=== PATIENT | male | born 1990 | race Asian ===

== ENCOUNTER 2024-11-19 13:10 | Outpatient (REF) | payer MEDICAID, SELFPAY ==
--- OUTSIDE RECORDS SUMMARY | 2024-11-19 14:29 | XMS_ITS | Clinical Summary ---
Author Organization [facility] Address [facility] [place] [address] Care Team Providers Care Manager Community Development Name Role Phone Medardo Flores MD Primary Care Provider Allergies No known active allergies Medications multivitamin Capsule Take 1 capsule by mouth daily. Active pantoprazole EC (Protonix) [address] tabletIndications :Gastroesophageal reflux disease, unspecified whether esophagitis present Take 1 tablet by mouth daily. 30 tablet 3 4 Active lisinopriL (Zestril) 40 mg tabletIndications :Essential hypertension Take 1 tablet by mouth daily. 90 tablet 4 Active bictegrav-emtrici t-tenofov ala (Biktarvy) 50-200-25 mg tabletIndications :HIV disease Take 1 tablet by mouth daily. 30 tablet 5 Active Active Problems Problem Noted Date Diagnosed Date Tobacco use 05/03/2020 Dry eye syndrome of both eyes 05/01/2019 Myopia of both eyes 04/11/2018 HIV (human immunodeficiency virus infection) Essential hypertension 11/07/2017 Genital warts 11/07/2017 Resolved Problems Problem Noted Date Diagnosed Date Resolved Date Cigarette smoker 11/07/2017 10/27/2018 Encounters Date Type Department Care Team Description 10/22/2024 Orders Only Infectious Disease at [place] [address] [facility] [address] Phyllis Garrett MD HIV disease 10/15/2024 Refill Infectious Disease at [facility] [place] [address] Phyllis Garrett MD HIV disease 10/15/2024 Refill Infectious Disease at [place] [phone] Phyllis Garrett MD HIV disease 09/21/2024 Specialty Pharmacy Pharmacy at [place] [phone] Nadine Pina, [facility] Medication Discontinuation or Transfer - bictegrav/emtricit/ten ofov ala (Biktarvy) for HIV 09/16/2024 Refill Infectious Disease at [place] [phone] Phyllis Garrett MD HIV disease 08/21/2024 Refill Infectious Disease at [place] [phone] Phyllis Garrett MD HIV disease 08/19/2024 Telephone [place] [address] None from Last 3 Months Immunizations Immunization Administration Dates Next Due HPV 9-Valent (Gardasil 9) 06/05/2018,01/14/2018, 10/03/2017 Influenza Quadrivalent, Pres ervative Free 01/15/2022,03/06/2021,04/04/2020,12/13 Meningococcal ACWY Polysacch aride Conjugate (Menactra) 11/14/2020,04/04/2020 Pneumococcal 13-Valent Conju gate (Prevnar 13) 10/27/2018 Pneumococcal 23-Valent Polys accharide (Pneumovax 23) 04/04/2020 Tdap (Adacel, Boostrix) 10/02/2016 Family History Medical History Relation Comments Hypertension Father Cataracts Neg Hx Diabetes Neg Hx Glaucoma Neg Hx Macular Degeneration Neg Hx Retinal Detachment Neg Hx Relation Status Comments Father Social History Tobacco Use Types Packs/Day Years Used Date Smoking Tobacco: Every Day Cigarettes 0.5 4 Smokeless Tobacco: Never Tobacco Cessation:Ready to Q uit: Not Asked; Counseling Given: Not Answered Alcohol Use Standard Drinks/Week Comments Yes 0 (1 standard drink = 0.6 oz pur e alcohol) socially Overall Financial Resource Strain (CARDIA) Answe r Date Recorded How hard is it for you to pa y for the very basics like food, housing, medical care, and heating? Patient declined 01/16/2022 Exercise Vital Sign Answer Date Recorde d On average, how many days pe r week do you engage in moderate to strenuous exercise (like a brisk walk)? 3 days 01/16/2022 On average, how many minutes do you engage in exercise at this level? 40 min 01/16/2022 Hunger Vital Sign Answer Date Recorded Within the past 12 months, y ou worried that your food would run out before you got the money to buy more. Patient declined Within the past 12 months, t he food you bought just didn't last and you didn't have money to get more. Patient declined 03/2021 PRAPARE - Transportation Answer Date Re corded In the past 12 months, has l ack of transportation kept you from medical appointments or from getting medications? No 03/2021 In the past 12 months, has l ack of transportation kept you from meetings, work, or from getting things needed for daily living? No 01/16/2022 Housing Stability Vital Sign Answer Krunal e Recorded In the last 12 months, was t here a time when you were not able to pay the mortgage or rent on time? Patient refused 01/17/20 22 In the last 12 months, how many places have you lived? 2 01/16/2022 In the last 12 months, was t here a time when you did not have a steady place to sleep or slept in a mcc (including now)? No 01/16/2022 Sex and Gender Information Value Date Recorded Sex Assigned at Male 11/13/2023 8:20 PM EDT Legal Sex Male 10:14 AM EDT Gender Identity Male 11/13/2023 8:20 PM EDT Sexual Orientation Lesbian or Castro 11/13/2023 8: 20 PM EDT Last Filed Vital Signs Vital Sign Reading Time Taken Comments Blood Pressure 139/94 11/19/2023 9:26 AM EDT Pulse 76 11/19/2023 9:26 AM EDT Temperature 36.3 C (97.3 F) 11/19/2023 9:26 AM EDT Respiratory Rate 16 01/07/2023 12:45 PM EDT Oxygen Saturation 100% 11/19/2023 9:26 AM EDT Inhaled Oxygen Concentration - - Weight 57.2 kg (126 lb 3.2 oz) 11/19/2023 9:26 A M EDT Height 164.4 cm (5' 4.72 ) 11/19/2023 9:26 AM ED T Body Mass Index 21.18 11/19/2023 9:26 AM EDT Plan of Treatment Health Maintenance Due Date Last Done Comments Hepatitis C Screening 07/16/2024 07/17/2023 , 04/23/2022, 11/12/2017 Syphilis Screening 07/16/2024 07/17/2023, 0 04/23/2022, 03/06/2021, Additional history exists Covid-19 Vaccine ( - 2023-2 5 season) 2024 Influenza (Flu) vaccine (1 o f 1 - Influenza standard series) 11/16/2024 01/15/2022, 03/06/2021, 04/04/2020, Additional history exists Chlamydia Screening 11/18/2024 11/19/2023, 07/17/2023, 01/07/2023, Additional history exists Gonorrhea Screening 11/18/2024 11/19/2023, 07/17/2023, 01/07/2023, Additional history exists Pneumococcal Vaccine: At-Ris k 5-49yrs (3 of 3 - PCV20 or PCV21) 04/04/2025 04/04/2020, 10/27/2018 Meningococcal ACWY Vaccine ( 3 - Risk 2-dose series) 11/14/2025 11/14/2020, 04/04/2020 Tetanus/Diphtheria/Pertussis Vaccines (2 - Td or Tdap) 10/02/2026 10/02/2016 Lipid Screening 07/16/2028 07/17/2023, 1203/2021, 11/12/2017 Hepatitis B Screening Completed 11/20/2017 , 11/12/2017, 11/12/2017 HPV vaccine Completed 06/05/2018, 12/18, 10/03/2017 Goals Goal Patient Goal Type Associated Problems Recent Progress Patient-Stated? Author Patient's specific desired goal: Patient Facing Action Plan On track(2023 10:07 AM EDT) Nadine Bone, [facility] Note: Goal(s): Undetectable HIV viral load Measured by: HIV-1 RNA lab Time-frame: 4-6 weeks after initiation/change in ART and then every 3-6 months thereafter Procedures Procedure Name Priority Date/Time Associated Diagnosis Comments GC/CHLAMYDIA Routine 11/19/2023 10:18 AM EDT Dysuria LIPID PANEL (REFLEX DIRECT LDL) Routine 07/17/2023 5:08 PM EDT HIV disease SYPHILIS ANTIBODY SCREEN WITH REFLEX Routine 07/17/2023 5:08 PM EDT HIV disease HEPATITIS C ANTIBODY Routine 07/17/2023 5:08 PM EDT HIV disease HEPATITIS B SURFACE ANTIGEN Routine 11/20/2017 4:46 PM EDT from Last 3 Months or Most Recently Relevant to Health Maintenance Results * GC/Chlamydia (11/19/2023 10:18 AM EDT) Gonorrhoeae Gene Amp Negative 11/20/2023 1:29 AM EDT [facility] Chlamydia Gene Amp Negative 11/20/2023 1:29 AM EDT [facility] Urine URINE SPECIMEN / Unknown Non Blood Collection / Unknown 11/19/2023 10:18 AM EDT 11/19/2023 10:30 AM EDT us Eva Kwok MD MICROBIOLOGY - GENERAL ORDER GRZEGORZ Final Result [facility] [place] [address] * Hepatitis C Antibody (07/17/2023 5:08 PM EDT) Hepatitis C Antibody Negative Negative [facility] Blood 07/17/2023 5:08 PM EDT 07/17/2023 5:20 PM EDT Narrative Resulting Agency Comment Spec In Lab Phyllis Garrett MD CHEMISTRY ORDERABLES Final Result [facility] [place] [address] * Syphilis Screening Antibody with reflex RPR (07/17/2023 5:08 PM EDT) Syphilis IgG/IgM Negative Negative [facility] Blood 07/17/2023 5:08 PM EDT 07/17/2023 5:20 PM EDT Narrative Resulting Agency Comment Spec In Lab Phyllis Garrett MD CHEMISTRY ORDERABLES Final Result Performing Organization Address [facility] Co de Phone Number [facility] [place] [address] * Lipid Panel (Reflex Direct LDL) (07/17/2023 5:08 PM EDT) Pathologist [facility] Cholesterol, Total 157 mg/dL [facility] Comment: Desirable: <200 mg/dL Borderline High: 200-239 mg/dL Higher: >ip=335 mg/dL Triglyceride 159 mg/dL [facility] Comment: Normal: <150 mg/dL Borderline High: 150-199 mg/dL High: 200-499 mg/dL Very High: >rl=093 mg/dL HDL Cholesterol 41 mg/dL [facility] Comment: Females: High Risk: <50 mg/dL Males: High Risk: <40 mg/dL LDL Cholesterol 84 mg/dL [facility] Comment: Desirable: <100 mg/dL Above Desirable: 100-129 mg/dL Borderline High: 130-159 mg/dL High: 160-189 mg/dL Very High: >xd=329 mg/dL Lipid Interpretation See Note [facility] Comment: It is important to review the results of your lipid panel with your health care provider. You can compare your lipid results to the ranges below and whether they are in the desirable range. These ranges are only meant to be used for people without known cardiac disease, history of stroke, or peripheral vascular disease (blockages in the leg arteries or diabetes). If you have one of these conditions, your desirable LDL-C (bad cholesterol) will likely be even lower. ACC/AHA Guidelines (most recently Andrea et al. [facility] 12/19/21): For individuals with atherosclerotic cardiovascular disease (ASCVD)or LDL >wm=939 mg/dL, use a high-intensity statin (40-80 mg atorvastatin or 20-40 mg rosuvastatin with goal >or=50% LDL reduction) For individuals with diabetes, age 40-75 without ASCVD, moderate-intensity statin (goal 30-49% LDL reduction); consider high intensity statin for those with increased risk. For adults without diabetes or ASCVD, aged 40-75 with LDL 70-189 mg/dL, estimate 10 year ASCVD risk with smartphrase .ASCVDRISK or Dynamed Decisions. If 10 year risk is 7.5%-19.9% (intermediate risk), consider moderate intensity statin based on risk enhancers and patient preference. Consider coronary artery calcium test (CT) if there is concern regarding the benefit of a statin. If ten year risk is >or=20%, initiate high-intensity statin. Evaluate for secondary causes of triglycerides >500 mg/dL or LDL >190 mg/dL. Lifestyle modification is a critical component of ASCVD risk reduction. If not reaching LDL goals on maximally tolerated statin, consider ezetimibe and/or a PCSK9 inhibitor: Target for primary prevention: LDL<100 Target for those with ASCVD or diabetes and 10-year risk >or=20%: LDL<70 Target for those with very high risk ASCVD: LDL<55 (Very high risk being the presence of 2 or more of: recent acute coronary syndrome, past myocardial infarction, ischemic stroke, symptomatic peripheral artery disease) Blood 07/17/2023 5:08 PM EDT 07/17/2023 5:20 PM EDT Narrative Resulting Agency Comment Spec In Lab us Phyllis Garrett MD CHEMISTRY [place] [address] * Hepatitis B Surface Antigen (11/20/2017 4:46 PM EDT) Hepatitis B Surface Antigen Negative Negative [facility] Blood specimen (specimen) Venous Draw / Unknown 11/20/2017 4:46 PM EDT 11/20/2017 5:49 PM EDT Narrative Resulting Agency Comment Spec In Lab Phyllis Garrett MD CHEMISTRY ORDERABLES Final Result [facility] [place] [address] from Last 3 Months or Most Recently Relevant to Health Maintenance Insurance * Guarantor: Flakito Guidry Account Type Relation to Patient Date of Phone Billing Address Personal/Family Self 1990 [id number] (Home) [address] [place] [id number] [employer] [facility] HMO POS Care Teams Manager Community Development Relationship Specialty Start Date End Date Medardo Flores MD [facility] [place] [address] PCP - General General Internal Medicine 09/16/23
--- OUTSIDE RECORDS SUMMARY | 2024-11-19 14:29 | XMS_ITS | Encounter Summary ---
Author Organization [facility] Address [facility] [place] [address] Care Team Providers Care Tractor Drill Operator Name Role Phone Medardo Flores MD Primary Care Provider Encounter Details Date Type Department Care Team (Late st Contact Info) Description 09/25/2017 Community Orders External [phone] Arnoldo Lara MD [address] [place] [address] Hypertension, unspecified type Social History Tobacco Use Types Packs/Day Years Used Date Smoking Tobacco: Former Cigarettes 0.3 1 1 - 12/31/2016 Smokeless Tobacco: Never Sex and Gender Information Value Date Recorded Sex Assigned at Male 11/13/2023 8:20 PM EDT Legal Sex Male 10:14 AM EDT Gender Identity Male 11/13/2023 8:20 PM EDT Sexual Orientation Lesbian or Castro 11/13/2023 8: 20 PM EDT documented as of this encounter Plan of Treatment Not on file documented as of this encounter Results * Basic Metabolic Panel (non-fasting) (10/22/2017 11:18 AM EDT) Glucose 86 65 - 199 mg/dL [facility] Comment:Diabetes: >=200 mg/d L plus symptoms Blood Urea Nitrogen 14 10 - 20 mg/dL [facility] Creatinine 0.91 0.80 - 1.50 mg/dL [facility] Sodium 139 135 - 145 mmol/L [facility] Potassium 4.3 3.5 - 5.0 mmol/L [facility] Comment: Please note: Patients with WBC >100,000 may have falsely elevated Potassium levels. For accurate Potassium quantification in these patients send serum separator tube (gold top) for subsequent determinations. Contact the Clinical Chemistry Laboratory if there are any questions. Chloride 98 98 - 107 mmol/L [facility] Carbon Dioxide 26 22 - 31 mmol/L [facility] Anion Gap 15 5 - 15 mmol/L [facility] Calcium 9.8 8.5 - 10.5 mg/dL [facility] Est Glomerular Filtration Rate 117 >=60 mL/min/1. 73 m [facility] Comment: The eGFR was calculated using the CKD-EPI equation. As with all creatinine based estimates of kidney function, eGFR values calculated with the CKD-EPI equation are not accurate in patients with acute kidney failure, extremes of body mass or the acutely ill. http://[employer]/DHnkf eGFR 135 >=60 mL/min/1. 73 m [facility] Comment: The eGFR was calculated using the CKD-EPI equation. As with all creatinine based estimates of kidney function, eGFR values calculated with the CKD-EPI equation are not accurate in patients with acute kidney failure, extremes of body mass or the acutely ill. [email or web address]/DHnkf Blood specimen (specimen) 10/22/2017 11:18 AM EDT 10/22/2017 11:30 AM EDT Narrative Resulting Agency Comment Spec In Lab us Arnoldo Lara MD CHEMISTRY ORDERABLES Final Resul t [facility] [place] [address] documented in this encounter Visit Diagnoses Diagnosis Hypertension, unspecified type documented in this encounter Additional Health Concerns Infection Onset Date Last Indicated Resolved Time COVID-19 03/10/2020 03/10/2020 03/31/2020 8:09 PM EST documented as of this encounter Care Teams Tractor Drill Operator Relationship Specialty Start Date End Date Medardo Flores MD [facility] [place] [phone] PCP - General General Internal Medicine 09/16/23 documented as of this encounter
--- OUTSIDE RECORDS SUMMARY | 2024-11-19 14:29 | XMS_ITS | Encounter Summary ---
Author Organization [facility] [place] [address] Care Team Providers Care Certified Cytotechnologist Name Role Phone Medardo Flores MD Primary Care Provider [phone] Reason for Visit * Reason Onset Date Comments Medication Refill 04/17/2018 Encounter Details Date Type Department Care Team (Late st Contact Info) Description 04/17/2018 Ref[place] [address] Phyllis Garrett MD [facility] [place] [address] HIV (human immunodeficiency virus infection) Social History Tobacco Use Types Packs/Day Years Used Date Smoking Tobacco: Every Day Cigarettes 0.3 1 Started: 01/01/2016; Last attempted to quit: 12/31/2016 Smokeless Tobacco: Never Alcohol Use Standard Drinks/Week Comments Yes 0 (1 standard drink = 0.6 oz pur e alcohol) socially Sex and Gender Information Value Date Recorded Sex Assigned at Male 11/13/2023 8:20 PM EDT Legal Sex Male 10:14 AM EDT Gender Identity Male 11/13/2023 8:20 PM EDT Sexual Orientation Lesbian or Castro 11/13/2023 8: 20 PM EDT documented as of this encounter Plan of Treatment Not on file documented as of this encounter Visit Diagnoses Diagnosis HIV (human immunodeficiency virus infection) Asymptomatic human immunodeficiency virus (HIV) infection status documented in this encounter Additional Health Concerns Infection Onset Date Last Indicated Resolved Time COVID-19 03/10/2020 03/10/2020 03/31/2020 8:09 PM EST documented as of this encounter Care Teams Certified Cytotechnologist Relationship Specialty Start Date End Date Medardo Flores MD [facility] [place] [address] PCP - General General Internal Medicine 09/16/23 documented as of this encounter
--- OUTSIDE RECORDS SUMMARY | 2024-11-19 14:29 | XMS_ITS | Encounter Summary ---
Author Organization [facility] [place] [address] Care Team Providers Care Lacing String Cutter Name Role Phone Medardo Flores MD Primary Care Provider [phone] Reason for Visit * Reason Comments Medication Refill Encounter Details Date Type Department Care Team ([facility] st Contact Info) Description 07/22/2022 Refill Internal Medicine at [facility] [place] [address] Eva Sandhu PA Exposure to chlamydia Social History Tobacco Use Types Packs/Day Years Used Date Smoking Tobacco: Former Cigarettes 0.5 4 0 04/09/2018 - 04/09/2022 Smokeless Tobacco: Never Alcohol Use Standard Drinks/Week [...] as of this encounter Visit Diagnoses Diagnosis Exposure to chlamydia Contact with or exposure to venereal diseases documented in this encounter Care Teams Lacing String Cutter Relationship Specialty Start Date End Date Medardo Flores MD [facility] [place] [address] PCP - General General Internal Medicine 09/16/23 documented as of this encounter
--- OUTSIDE RECORDS SUMMARY | 2024-11-19 14:29 | XMS_ITS ---
[place] [address] Care Team Providers Care Content Director Name Role Phone Medardo Flores MD Primary Care Provider [phone] HIV Status:Un-enrolled (Enrolling) Start date:05/16/2023 Enrollment reason:Un-enrolled - Patient Convenience or Preference Linked medications:bictegrav/emtricit/tenofov ala (Active) Linked problems:HIV (human immunodeficiency virus infection) (Active) Continued Care and Services Coordination
[2024-11-19 16:10] LABS: MANUAL DIFF FLAG NO
[2024-11-19 16:18] LABS: Hematocrit 45.9 % (42.0-52.0); Hemoglobin 16.0 g/dl (14.0-18.0); Imm Gran Abs Auto 0.01 X10*3/uL (0.00-0.03); Imm Gran Pct Auto 0.2 % (0.0-0.4); Lymphocytes Absolute Auto 1.8 X10*3/uL (1.2-4.9); Mean Corpuscular HGB Conc 34.9 g/dl (31.0-36.0); Mean Corpuscular Hemoglobin 30.9 pg (27.0-33.0); Mean Corpuscular Volume 88.6 fL (80.0-98.0); NRBC Abs Auto 0.000 X10*3/uL (0.0-0.012); NRBC Pct Auto 0.0 /100WBC (0.0-0.2); Platelet Count 189 X10*3/uL (160-400); Red Blood Count 5.18 X10*6/uL (4.60-5.80); White Blood Count 4.4 X10*3/uL (4.8-10.8)
[2024-11-19 16:23] LABS: Alanine Aminotransferase 51 U/L (0-40); Albumin Level 5.3 g/dL (3.5-5.0); Alkaline Phosphatase 57 U/L (39-117); Anion Gap 12 (12-20); Aspartate Amino Transferase 29 U/L (5-37); Blood Urea Nitrogen 16 mg/dL (9-16); Calcium 9.3 mg/dL (8.4-10.2); Carbon Dioxide 28 mmol/L (22-29); Chloride 104 mmol/L (96-108); Estimated Glomerular Filt Rate > 60; Potassium 3.8 mmol/L (3.3-5.1); Sodium 140 mmol/L (135-145); Total Protein 7.8 g/dL (6.5-8.0)
[2024-11-19 23:48] LABS: CT PCR Urine NOT DETECTED (Not Detect.); NG PCR Urine NOT DETECTED (Not Detect.)
[2024-11-20 04:20] LABS: HBS Num1 27.40 mIU/mL (0-7.99); HBc Num1 0.31 S/CO (0.00-0.79); HBsAGNum1 0.58 S/CO (0.00-0.99); Hepatitis B Surface Antigen Negative (Negative); ~HepC Num1 0.07 S/CO (0.00-0.79); ~Hepatitis B Surface Antibody REACTIVE (Nonreactive); ~Hepatitis C Antibody Nonreactive (Nonreactive)
[2024-11-20 04:43] LABS: ~Hepatitis A Antibody IgG 10.09 S/CO (0.00-0.99)
[2024-11-20 04:47] LABS: Syphilis Screen Nonreactive (Nonreactive)
[2024-11-20 09:24] LABS: Rubeola IgG (Measles) >300.00 AU/mL
[2024-11-20 14:09] LABS: C. Trachomatis RNA TMA, Throat NOT DETECTED (NOT DETECTED); N. gonorrhoeae RNA TMA, Throat NOT DETECTED (NOT DETECTED)
[2024-11-20 17:44] LABS: C.Trachomatis RNA TMA, Rectal NOT DETECTED (NOT DETECTED); N.Gonorrhoeae RNA TMA, Rectal NOT DETECTED (NOT DETECTED)
[2024-11-22 08:08] LABS: TS Negative Control Passed; TS Panel A 0; TS Panel B 0; TS Positive Control Passed; TSpotTB Negative (Negative)
[2024-11-22 18:54] LABS: Absolute CD3 Count 1203 cells/uL (840-3060); Absolute CD8 Count 873 cells/uL (180-1170); Percent CD3 Cells 68 % (57-85); Percent CD8 Cells 50 % (12-42)
[2024-11-25 20:44] LABS: HIV RNA PCR Qn Copies 273 Copies/mL; HIV RNA PCR Qn Log Copies 2.44 Log cps/mL
== END 2024-11-19 13:11 | disposition home or self-care (01) ==
LOC: HO.HHCL 13:10
PROVIDERS: Visit Provider Internal Medicine
DX: B20 Human immunodeficiency virus [HIV] disease (principal); Z01.84 Encounter for antibody response examination; Z11.3 Encounter for screening for infections with a predominantly sexual mode of transmission; Z11.8 Encounter for screening for other infectious and parasitic diseases; Z11.59 Encounter for screening for other viral diseases
CPT/HCPCS: 36415; 80053; 85025; 86359; 86360; 86481; 86704; 86706; 86708; 86735; 86762; 86765; 86777; 86778; 86780; 86787; 86803; 87340; 87491; 87536; 87591; 87900

== ENCOUNTER 2025-01-11 11:25 | Outpatient (REF) | payer MEDICAID, SELFPAY ==
[2025-01-11 13:23] LABS: MANUAL DIFF FLAG NO
[2025-01-11 13:41] LABS: Hematocrit 47.3 % (42.0-52.0); Hemoglobin 16.1 g/dl (14.0-18.0); Imm Gran Abs Auto 0.01 X10*3/uL (0.00-0.03); Imm Gran Pct Auto 0.2 % (0.0-0.4); Lymphocytes Absolute Auto 1.5 X10*3/uL (1.2-4.9); Mean Corpuscular HGB Conc 34.0 g/dl (31.0-36.0); Mean Corpuscular Hemoglobin 30.7 pg (27.0-33.0); Mean Corpuscular Volume 90.1 fL (80.0-98.0); NRBC Abs Auto 0.000 X10*3/uL (0.0-0.012); NRBC Pct Auto 0.0 /100WBC (0.0-0.2); Platelet Count 187 X10*3/uL (160-400); Red Blood Count 5.25 X10*6/uL (4.60-5.80); White Blood Count 5.8 X10*3/uL (4.8-10.8)
[2025-01-11 13:49] LABS: Alanine Aminotransferase 28 U/L (0-40); Albumin Level 4.7 g/dL (3.5-5.0); Alkaline Phosphatase 73 U/L (39-117); Anion Gap 10 (12-20); Aspartate Amino Transferase 31 U/L (5-37); Blood Urea Nitrogen 9 mg/dL (9-16); Calcium 8.8 mg/dL (8.4-10.2); Carbon Dioxide 29 mmol/L (22-29); Chloride 107 mmol/L (96-108); Cholesterol 134 mg/dL (<200); Estimated Glomerular Filt Rate > 60; HDL Cholesterol 39 mg/dL (>40); Potassium 3.6 mmol/L (3.3-5.1); Sodium 142 mmol/L (135-145); Total Protein 7.2 g/dL (6.5-8.0); Triglycerides 73 mg/dL (<150)
--- OUTSIDE RECORDS SUMMARY | 2025-01-11 14:39 | XMS_ITS | Clinical Summary ---
Author Organization [facility] Address [address] [place] [address] Care Team Providers Care Med Care Manager Name Role Phone Unavailable Primary Care Provider Unavailabl e Source Comments PLEASE NOTE, if this patient is a minor, it may be UNLAWFUL to discuss sensitive information that is contained in these records (such as FAMILY PLANNING, MENTAL HEALTH or SUBSTANCE ABUSE) with the minor patient's parent or other person without the patient's specific authorization.[facility] Social History Tobacco Use Types Packs/Day Years Used Date Smoking Tobacco: Never Assessed Sex and Gender Information Value Date Recorded Sex Assigned at Male 11/30/2024 9:34 AM PDT Legal Sex Male 9:34 AM PDT Gender Identity Male 11/30/2024 9:34 AM PDT Sexual Orientation Not on file Plan of Treatment Upcoming Encounters Date Type Department Care Team (Late st Contact Info) Description 01/19/2025 1:00 PM EST Behavioral Health Visit [facility] [address] [place] [address] Xochitl Lynn APRN [address] [place] [address] Health Maintenance Due Date Last Done Comments Anxiety Screening 1990 Tobacco Screening 1990 HIV Screening 10/10/2007 Hypertension Screening (#1) 2010 Imm-Hepatitis B (1 of 3 - 19 + 3-dose series) 10/10/2011 Alcohol and Drug Screen 03/18/2024 Depression Annual Screen 03/18/2024 [id number] ( - season) 2024 Imm-Influenza (#1) 2024 01/15/2022, 1 05/07/2020, 04/04/2020, Additional history exists Imm-DTaP/Tdap/Td (2 - Td or Tdap) 10/02/2026 017 Imm-HPV Completed 06/05/2018, 12/18, 10/03/2017 Hepatitis C Screening Completed 11/19/2024 Insurance [employer] [facility] [place] [phone]
--- OUTSIDE RECORDS SUMMARY | 2025-01-11 14:39 | XMS_ITS | Clinical Summary ---
Author Organization [facility] Address [facility] [place] [address] Care Team Providers Care Cognos Analyst Name Role Phone Medardo Flores MD Primary Care Provider [phone] Allergies No known active allergies Medications multivitamin [...] Encounters Date Type Department Care Team Description 11/19/2024 Refill Infectious Disease at [place] [address] [place] [address] [place] [address] Phyllis Garrett MD HIV disease 10/22/2024 Orders Only Infectious Disease at [place] [address] [place] [address] [place] [address] Phyllis Garrett MD HIV disease 10/15/2024 Ref[place] [address] Phyllis Garrett MD HIV disease 10/15/2024 [place] [address] Phyllis Garrett MD HIV disease from Last 3 Months Immunizations Immunization Administration [...] place to sleep or slept in a penitentiary (including now)? No 01/16/2022 Sex and Gender [...] 04/23/2022, 03/06/2021, Additional history exists Covid-19 Vaccine (1 - 2024-2 6 season) 2024 Influenza (Flu) vaccine (1 o [...] On track(2023 10:07 AM EDT) Nadine Bone, [facility] Note: Goal(s): Undetectable HIV viral load Measured [...] Gene Amp Negative 11/20/2023 1:29 AM EDT [facility] Chlamydia Gene Amp Negative 11/20/2023 1:29 AM EDT [facility] Urine URINE SPECIMEN / Unknown Non Blood Collection / Unknown 11/19/2023 10:18 AM EDT 11/19/2023 10:30 AM EDT us Eva Kwok MD MICROBIOLOGY - GENERAL ORDER GRZEGORZ Final Result [facility] [place] [address] * Hepatitis C Antibody (07/17/2023 5:08 PM EDT) Hepatitis C Antibody Negative Negative [facility] Blood 07/17/2023 5:08 PM EDT 07/17/2023 5:20 PM EDT Narrative Resulting Agency Comment Spec In Lab us Phyllis Garrett MD CHEMISTRY ORDERABLES Final Result [facility] [place] [address] * Syphilis Screening Antibody with reflex RPR (07/17/2023 5:08 PM EDT) Syphilis IgG/IgM Negative Negative [facility] Blood 07/17/2023 5:08 PM EDT 07/17/2023 5:20 PM EDT Narrative Resulting Agency Comment Spec In Lab us Phyllis Garrett MD CHEMISTRY ORDERABLES Final Result [facility] [place] [address] * Lipid Panel (Reflex Direct LDL) (07/17/2023 5:08 PM EDT) Cholesterol, Total 157 mg/dL [facility] Comment: Desirable: <200 mg/dL Borderline High: 200-239 mg/dL Higher: >uv=717 mg/dL Triglyceride 159 mg/dL [facility] Comment: Normal: <150 mg/dL Borderline High: 150-199 mg/dL High: 200-499 mg/dL Very High: >pv=882 mg/dL HDL Cholesterol 41 mg/dL [facility] Comment: Females: High Risk: <50 mg/dL Males: High Risk: <40 mg/dL LDL Cholesterol 84 mg/dL [facility] Comment: Desirable: <100 mg/dL Above Desirable: 100-129 mg/dL Borderline High: 130-159 mg/dL High: 160-189 mg/dL Very High: >km=710 mg/dL Lipid Interpretation See Note [facility] Comment: It is important to review [...] ACC/AHA Guidelines (most recently Andrea et al. JACC 12/19/21): For individuals with atherosclerotic cardiovascular disease (ASCVD)or LDL >gz=677 mg/dL, use a high-intensity statin (40-80 mg [...] CHEMISTRY ORDERABLES Final Result Performing Organization Address [facility]/ZIP Co de Phone Number [facility] [place] [address] * Hepatitis B Surface Antigen (11/20/2017 4:46 PM EDT) Hepatitis B Surface Antigen Negative Negative [facility] Blood specimen (specimen) Venous Draw / Unknown 11/20/2017 4:46 PM EDT 11/20/2017 5:49 PM EDT Narrative Resulting Agency Comment Spec In Lab us Phyllis Garrett MD CHEMISTRY ORDERABLES Final Result Performing Organization Address City/[facility]/ZIP Co de Phone Number [facility] [place] [address] from Last 3 Months or Most Recently Relevant to Health Maintenance Insurance * Guarantor: Flakito Guidry Account Type Relation to Patient Date of Phone Billing Address Personal/Family Self 1990 [id number] (Home) [address] [place] [address] [facility] Care Teams Cognos Analyst Relationship Specialty Start Date End Date Medardo Flores MD [facility] [place] [place] [address] PCP - General General Internal Medicine 09/16/23
--- OUTSIDE RECORDS SUMMARY | 2025-01-11 14:39 | XMS_ITS ---
[place] [address] Care Team Providers Care Rubber Ball Finisher Name Role Phone Medardo Flores MD Primary Care Provider [phone] HIV Status:Un-enrolled (Enrolling) Start date:05/16/2023 Enrollment reason:Un-enrolled - Patient Convenience or Preference Linked medications:bictegrav/emtricit/tenofov ala (Active) Linked problems:HIV (human immunodeficiency virus infection) (Active) Continued Care and Services Coordination
--- OUTSIDE RECORDS SUMMARY | 2025-01-11 14:39 | XMS_ITS | Encounter Summary ---
Author Organization Formerly [facility] Address [facility] [place] [address] Care Team Providers Care Boarder Machine Name Role Phone Medardo Flores MD Primary Care Provider [phone] Encounter Details Date Type Department Care Team (Late st Contact Info) Description 09/25/2017 Community Orders External [phone] Arnoldo Lara MD [address] [place] [address] Hypertension, unspecified type Social History Tobacco Use [...] EDT) Glucose 86 65 - 199 mg/dL [facility] Comment:Diabetes: >=200 mg/d L plus symptoms Blood Urea Nitrogen 14 10 - 20 mg/dL [facility] Creatinine 0.91 0.80 - 1.50 mg/dL [facility] Sodium 139 135 - 145 mmol/L [facility] Potassium 4.3 3.5 - 5.0 mmol/L [facility] Comment: Please note: Patients with WBC >100,000 may have falsely elevated Potassium levels. For accurate Potassium quantification in these patients send serum separator tube (gold top) for subsequent determinations. Contact the Clinical Chemistry Laboratory if there are any questions. Chloride 98 98 - 107 mmol/L [facility] Carbon Dioxide 26 22 - 31 mmol/L [facility] Anion Gap 15 5 - 15 mmol/L [facility] Calcium 9.8 8.5 - 10.5 mg/dL [facility] Est Glomerular Filtration Rate 117 >=60 mL/min/1. 73 m [facility] Comment: The eGFR was calculated using the CKD-EPI equation. As with all creatinine based estimates of kidney function, eGFR values calculated with the CKD-EPI equation are not accurate in patients with acute kidney failure, extremes of body mass or the acutely ill. [email or web address] eGFR 135 >=60 mL/min/1. 73 m [facility] Comment: The eGFR was calculated using the CKD-EPI equation. As with all creatinine based estimates of kidney function, eGFR values calculated with the CKD-EPI equation are not accurate in patients with acute kidney failure, extremes of body mass or the acutely ill. [email or web address] Blood specimen (specimen) 10/22/2017 11:18 AM EDT 10/22/2017 11:30 AM EDT Narrative Resulting Agency Comment Spec In Lab us Arnoldo Lara MD CHEMISTRY ORDERABLES Final Resul t [facility] [place] [address] documented in this encounter Visit Diagnoses Diagnosis Hypertension, unspecified type documented in this encounter Additional Health Concerns Infection Onset Date Last Indicated Resolved Time COVID-19 03/10/2020 03/10/2020 03/31/2020 8:09 PM EST documented as of this encounter Care Teams Boarder Machine Relationship Specialty Start Date End Date Medardo Flores MD [facility] [place] [id number] PCP - General General Internal Medicine 09/16/23 documented as of this encounter
--- OUTSIDE RECORDS SUMMARY | 2025-01-11 14:39 | XMS_ITS | Encounter Summary ---
Author Organization [facility] [place] [address] Care Team Providers Care Wafer Fabrication Operator Name Role Phone Medardo Flores MD Primary Care Provider [phone] Reason for Visit * Reason Onset Date Comments Medication Refill 04/17/2018 Encounter Details Date Type Department Care Team (Late st Contact Info) Description 04/17/2018 Refill [place] [address] Phyllis Garrett MD [facility] [address] INFECTIOUS [place] [address] HIV (human immunodeficiency virus infection) Social History [...] documented as of this encounter Care Teams Wafer Fabrication Operator Relationship Specialty Start Date End Date Medardo Flores MD [facility] [place] [address] PCP - General General Internal Medicine 09/16/23 documented as of this encounter
--- OUTSIDE RECORDS SUMMARY | 2025-01-11 14:39 | XMS_ITS | Encounter Summary ---
Author Organization [facility] [place] [address] Care Team Providers Care Human Resource Manager Name Role Phone Medardo Flores MD Primary Care Provider [phone] Reason for Visit * Reason Comments Medication Refill Encounter Details Date Type Department Care Team ([facility] st Contact Info) Description 07/22/2022 Refill Internal Medicine at [facility] [place] [address] Eva Sandhu PA Exposure to chlamydia Social [...] place to sleep or slept in a senior living (including now)? No 01/16/2022 Sex and Gender [...] diseases documented in this encounter Care Teams Human Resource Manager Relationship Specialty Start Date End Date Medardo Flores MD [facility] [place] [address] PCP - General General Internal Medicine 09/16/23 documented as of this encounter
[2025-01-12 20:39] LABS: HIV RNA PCR Qn Copies 291 copies/mL (NOT DETECTED); HIV RNA PCR Qn Log Copies 2.46 (NOT DETECTED)
[2025-01-15 15:43] LABS: Absolute CD3 Count 1107 cells/uL (840-3060); Absolute CD8 Count 779 cells/uL (180-1170); Percent CD3 Cells 68 % (57-85); Percent CD8 Cells 48 % (12-42)
== END 2025-01-11 11:26 | disposition home or self-care (01) ==
LOC: HO.HHCL 11:25
PROVIDERS: Internal Medicine; PCP Nurse Practitioner Family; Visit Provider Nurse Practitioner Family
DX: I10 Essential (primary) hypertension (principal); Z21 Asymptomatic human immunodeficiency virus [HIV] infection status
CPT/HCPCS: 36415; 80053; 80061; 83036; 85025; 86359; 86360; 87536